=== PATIENT | female | born 1955 | race Hispanic/Latino ===

== ENCOUNTER 2018-12-12 14:13 | Emergency (ER) | payer OTHER ==
[~2018-12-12] VITALS: Ht 165.1 cm; Wt 78.9 kg
--- OUTSIDE RECORDS SUMMARY | 2018-12-12 14:16 | XMS REPORT | Clinical Summary ---
Author Author DIANE RadioShackBenewah Community HospitalPhotop TechnologiesLourdes Counseling Center Organization [facility] RadioShackIdaho Falls Community HospitalLocishLourdes Counseling Center Address Unknown Phone Unavailable Care Team Providers Care Star Route Mail Driver Name Role Phone David Tamez MD PCP Allergies No Known Allergies Medications End Date Status Medication Sig Dispensed Refills Start Date 10/15/2018 Discontinued omega 6-kgl-rkr-fish oil Take 1,000 mg 0 1,200 (144-216) [...] Taken Vital Sign Reading 10/10/2018 12:12 PM PIPE INSULATOR HELPER Blood Pressure 130/78 10/10/2018 12:12 PM PIPE INSULATOR HELPER Pulse 63 10/10/2018 12:12 PM PIPE INSULATOR HELPER Temperature 35.8 C (96.5 F) 10/10/2018 12:12 PM PIPE INSULATOR HELPER Respiratory Rate 18 10/10/2018 12:12 PM PIPE INSULATOR HELPER Oxygen Saturation 99% - Inhaled Oxygen - Concentration 10/10/2018 12:23 PM PIPE INSULATOR HELPER Weight 83.9 kg (185 lb) 10/10/2018 12:23 PM PIPE INSULATOR HELPER Height 165.1 cm (5' 5") 10/10/2018 12:23 PM PIPE INSULATOR HELPER Body Mass Index 30.79 Plan of Treatment Not on file Procedures Comments Procedure Name Priority Date/Time Associated Diagnosis CYTOLOGY AP Routine 09/08/2018 4:00 PM PIPE INSULATOR HELPER US FINE NEEDLE ASPIRATION Routine 09/08/2018 Thyroid nodule THYROID 1:15 [address]ULATOR HELPER [address] SOFT TISSUE NECK WITH Routine 09/08/2018 Neck mass IV CONTRAST 9:04 AM PIPE INSULATOR HELPER POCT-CREATININE Routine 09/08/2018 9:00 AM PIPE INSULATOR HELPER after 12/11/2017 Results * Cytology (09/08/2018 4:00 PM PIPE INSULATOR HELPER) Case Report Medical Cytology [facility] Report [facility] Case: [id number] Authorizing Provider:Nickolas Tom MD Collected: 09/08/2018 1600 Ordering Location: [facility] Radiology Main Received: 09/09/2018 1139 Pathologist: Lois Casper MD Specimen:Thyroid, Right DIAGNOSIS LEFT LOBE THYROID GLAND NODULE [facility] FNA BY CLINICIAN (CYTOSPINS): [facility] - DIAGNOSTIC CATEGORY: BENIGN - HYPERPLASTIC NODULE Signing Pathologist Direct Phone Line: [phone] CPT Code(s) 59449 [facility] CLINICAL DATA (2.2 X 1.1 X 1.6 cm) Left [facility] thyroid gland nodule [facility] SPECIMEN SOURCE LEFT LOBE THYROID GLAND NODULE [facility] FNA [facility] GROSS DESCRIPTION 30 mls in cytorich red; 4 [facility] cytospins [facility] Collected: [id number] Received: [id number] Gross assessment was [facility] performed at [place], Department of [facility] Pathology, [address] [place] [address], Technical component was [facility] performed at [place], Department of [facility] Pathology, [address] [place] [address], Professional component [facility] was performed at [place], Department of [facility] Pathology, [address] [place] [address], Specimen Fine Needle Aspirate - Thyroid, Right Narrative Performed At Performing Organization Address City/State/Zipcode Phone Number [address] [address] [facility] * US Fine Needle Aspiration Thyroid (09/08/2018 1:15 PM PIPE INSULATOR HELPER) Narrative Performed At FINAL REPORT [employer] Ultrasound-guided fine needle aspiration of the thyroid. [...] The sample was sent to cytology in [facility]. Patient disposition: The patient was asymptomatic at [...] MD Report Verified Date/Time:09/08/2018 14:54:06 Reading Location: [address] Ultrasound Reading Room Procedure Note Interface, External Ris In - 09/08/2018 2:56 PM PIPE INSULATOR HELPER FINAL REPORT Ultrasound-guided fine needle aspiration [...] The sample was sent to cytology in [facility]. Patient disposition: The patient was asymptomatic at [...] Report Verified Date/Time: 09/08/2018 14:54:06 Reading Location: [address] Ultrasound Reading Room Performing Organization Address City/State/Zipcode Phone Number [employer] * CT neck soft tissue with IV contrast (09/08/2018 9:04 AM PIPE INSULATOR HELPER) Narrative Performed At FINAL REPORT [employer] CT, SOFT TISSUE NECK, CONTRAST INDICATION:R22.1 TECHNIQUE: [...] MD Report Verified Date/Time:09/08/2018 09:42:06 Reading Location: [address] Neuro Reading Room Procedure Note Interface, External Ris In - 09/08/2018 9:44 AM PIPE INSULATOR HELPER FINAL REPORT CT, SOFT TISSUE NECK, [...] Report Verified Date/Time: 09/08/2018 09:42:06 Reading Location: [facility] B1 C013V Neuro Reading Room Performing Organization Address City/State/Zipcode Phone Number GE RIS * POC-Creatinine (09/08/2018 9:00 AM PIPE INSULATOR HELPER) POC-Creatinine 0.8Comment: TESTED AT [facility] 0.6 - 1.3 mg/dL [address] POC-EGFR 72 mL/min/1.73M2 [facility] Specimen Blood Performing Organization Address City/State/[place] [address] [facility] after 12/11/2017 Insurance Payer Benefit Subscriber ID Type Phone Address Plan / Group [facility] xxxxxxxxxx [employer]PLAC E EXCHANGE
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
--- NOTE | 2018-12-12 15:24 | Diagnostic Imaging Report ---
Exam: Left tibia 2 views and 2 views History: Fracture Comparison: None. Findings: Stable depressed lateral tibial plateau fracture. The remainder of the tibia fibula and femur unremarkable for trauma. Nonaggressive sclerotic lesion within the proximal lateral femoral diaphysis. Impression: Depressed lateral tibial plateau fracture Signed by: Dr. Pako Perez M.D. on 12/12/2018 3:21 PM
--- NOTE | 2018-12-12 15:36 | Diagnostic Imaging Report ---
Exam: Left hip 2 views History: Pain Comparison: None. Findings: No fracture or malalignment. Mild degenerative arthrosis of the hips. Non aggressive sclerotic lesion in the proximal left femoral diaphysis. No abnormal soft tissue calcification or soft tissue defect. Impression: No acute osseous abnormality Signed by: Dr. Pako Perez M.D. on 12/12/2018 3:32 PM
--- NOTE | 2018-12-12 15:59 | NUR ---
knee immobilizer placed by shelli. pt to go home per md after talking with ortho.
--- NOTE | 2018-12-12 16:19 | NUR ---
CRUTCHES WITH TEACHING.
[2018-12-22] MEDS ORDERED: XARELTO10 MG PO (15:52)
[2018-12-22] MEDS ORDERED: B COMPLEX1 EACH PO (16:09)
[2018-12-22] MEDS ORDERED: MAGNESIUM500 MG PEG (16:09)
[2018-12-22] MEDS ORDERED: CALCIUM CARBON500 MG PO (16:09)
[2018-12-22] MEDS ORDERED: MULTI-VITAMIN1 EACH PO (16:09)
== END 2018-12-12 16:36 | disposition home or self-care (01) ==
LOC: FSED 14:13
DX: G89.11 Acute pain due to trauma (principal); S82.252A Displaced comminuted fracture of shaft of left tibia, initial encounter for closed fracture; S80.02XA Contusion of left knee, initial encounter; S70.02XA Contusion of left hip, initial encounter; V09.20XA Pedestrian injured in traffic accident involving unspecified motor vehicles, initial encounter; Y92.488 Other paved roadways as the place of occurrence of the external cause
CPT/HCPCS: 99284

== ENCOUNTER → 2018-12-12 | Emergency (ER) | payer OTHER ==
[~2018-12-12] VITALS: Ht 165.1 cm; Wt 78.9 kg
[~2018-12-12] MED LIST: B COMPLEX1 EACH PO; CALCIUM CARBON500 MG PO; HYDROMORPHONE 2MG/ML 2 MG/ML ML IM ONE; MAGNESIUM500 MG PEG; MULTI-VITAMIN1 EACH PO; XARELTO10 MG PO
--- OUTSIDE RECORDS SUMMARY | 2018-12-12 11:37 | XMS REPORT ---
Author Author [facility] Address Unknown Phone Unavailable Care Team Providers Care Applications Tester Name Role Phone NADIA TOM Unavailable Unavailable Problems This patient has no known problems. Allergies, Adverse Reactions, Alerts This patient has no known allergies or adverse reactions. Medications This patient has no known medications. Results Test Description Test Time Test Comments Text Results Atomic Results Result Comments CYTOLOGY 2018-09-09 17:18:00 Medical Cytology Report Case: [id number] Authorizing Provider: Nickolas Tom MD Collected: 09/08/2018 1600 Ordering Location: [facility] Radiology Main Received: 09/09/2018 1139 Pathologist: Lois Casper MD Specimen: Thyroid, Right LEFT LOBE THYROID GLAND NODULE FNA BY CLINICIAN (CYTOSPINS): - DIAGNOSTIC CATEGORY: BENIGN - HYPERPLASTIC NODULE Signing Pathologist Direct Phone Line: [phone] signed by Lois Casper MD on 09/09/2018 at 5:18 [id number](2.2 X 1.1 X 1.6 cm) Left thyroid gland nodule LEFT LOBE THYROID GLAND NODULE FNA30 mls in cytorich red; 4 cytospinsCollected: [id number]: [id number] [facility], Department of Pathology, [address] [place] [address], [facility], [facility] of Pathology, [address] [place] [address], [facility], Department of Pathology, [address] [place] [address], [place], FINE NEEDLE ASPIRATION (FNA), THYROID 2018-09-08 14:54:00 Reason for Exam:->E04.1 FINAL REPORT Ultrasound-guided fine needle aspiration of the thyroid. Clinical History: E04.1. Informed consent was obtained from the patient and risks of the procedure were explained including bleeding, infection and visceral injury. Sedation: 1% Xylocaine. Technique: Using sterile technique, real-time ultrasound guidance and three 25 gauge needles, a 3 pass fine needle aspiration was performed of the 2.2 x 1.1 x 1.6 cm isoechoic nodule in the mid to lower pole of the right lobe. The sample was sent to cytology in [facility]. Patient disposition: The patient was asymptomatic at the termination of the study. No complications were encountered. Estimated Blood Loss: None. Impression: Successful fine needle aspiration of a 2.2 x 1.1 x 1.6 cm nodule in the right lobe of the thyroid gland. Also noted is a 1.7 x 1.0 x 1.3 cm oval hypoechoic nodule in the isthmus. Fine needle aspiration of this nodule was not requested but it would be amenable to fine-needle aspiration as clinically in dicated. The office was called to communicate this finding but the doctor could not be reached as he was in surgery. The results and recommendations were discussed with the patient. Signed: Yony Laureano MDReport Verified Date/Time: 09/08/2018 14:54:06 Reading Location: [address] Ultrasound Reading Room , SOFT TISSUE NECK, CONTRAST 2018-09-08 09:42:[address], SOFT TISSUE NECK, CONTRAST INDICATION: R22.1 TECHNIQUE: Postcontrast CT images of the cervical soft tissues. Multiplanar, orthogonal reformatted images were generated. DOSE REDUCTION: Dose modulation, iterative reconstruction, and/or weight-based adjustment of the mA/kV was utilized to reduce the radiation dose to as low as reasonably achievable. COMPARISON: None FINDINGS: A subcutaneous cystic structure with thin rim enhancement is present anterior to the hyoid bone, position the left of midline and measuring approximately 1.5 x 2.2 cm. There is no discernible communication beyond the superficial layer of the cervical fashion. No cystic or fistula changes are identified extending toward away from this lesion. The oral cavity and base of tongue are unremarkable. The hyoid bone is intact. The nasopharynx, oral cavity and parapharyngeal spaces are clear. Retropharyngeal space is unremarkable. Appearance of the larynx, hypopharynx and supraglottic glottis are unremarkable. The thyroid gland demonstrates normal low morphology. A nodular lesion in the region of the isthmus measures 1.2 x 0.9 cm. Vascular structures are unremarkable. There is no adenopathy. No acute orbital abnormality. Mucosal thickening and partial fluid opacification bilaterally maxillary chambers and multiple anterior air cells. Sphenoid chambers and mastoid air cells are clear. Unremarkable skull base. 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 No secondary sign of infection. Low-attenuation lesion in the thyroid isthmus measures up to 1.3 cm in greatest dimension. This is nonspecific, and given the aforementioned cystic lesion, sonographic follow-up is recommended. Signed: JR Trinh Robert MDReport Verified Date/Time: 09/08/2018 09:42:06 Reading Location: [address] Neuro Reading Room -CREATININE 2018-09-08 09:16:00 POC-CREATININE (SIS) (test jyos=[id number]) 0.8 mg/dL 0.6-1.[address] [address] POC-EGFR (SIS) (test mbwq=8895) 72 mL/min/1.73M2
--- OUTSIDE RECORDS SUMMARY | 2018-12-12 11:37 | XMS REPORT | Clinical Summary ---
Author Author DIANE AkvoBenewah Community HospitalVirident SystemsKindred Healthcare Organization [facility] AkvoSt. Luke'S Nampa Medical CenterTobosu.comKindred Healthcare Address Unknown Phone Unavailable Care Team Providers Care Anthropology Faculty Member Name Role Phone David Tamez MD PCP Allergies No Known Allergies Medications End Date Status Medication Sig Dispensed Refills Start Date 10/15/2018 Discontinued omega 1-ptr-hww-fish oil Take 1,000 mg 0 1,200 (144-216) mg Cap by mouth daily. 10/15/2018 Discontinued glucosamine-methylsulfony Take 1 tablet 0 lmeth (GLUCOSAMINE MSM) by mouth 1,500-500 mg/30 mL Liqd daily. 10/15/2018 Discontinued coenzyme Q10 (CO Q-10) Take 100 mg 0 100 mg capsule by mouth daily. 10/15/2018 Discontinued cholecalciferol, vitamin Take 5,000 0 D3, (VITAMIN D3) 5,000 Units by unit Tab mouth daily. 10/15/2018 Discontinued flaxseed oil Oil Take 200 mg 0 by mouth daily. 10/15/2018 Discontinued acetylcysteine, bulk, by 0 Powd Miscellaneous route. 10/15/2018 Discontinued multivitamin per tablet Take 1 tablet 0 by mouth daily. 10/15/2018 Discontinued CHROMIUM ORAL Take by 0 mouth. 10/15/2018 Discontinued b complex vitamins tablet Take 1 tablet 0 by mouth daily. 10/15/2018 Discontinued CALCIUM-MAGNESIUM ORAL Take by 0 mouth. 10/15/2018 Discontinued vitamin E 1000 UNIT Take 2,000 0 capsule Units by mouth daily. 10/15/2018 Discontinued biotin 10,000 mcg Cap Take by 0 mouth. 10/15/2018 Discontinued potassium 99 mg Tab Take by 0 mouth. 10/15/2018 Discontinued alpha lipoic acid 200 mg Take by 0 Cap mouth. Active Problems Not on file Encounters Care Team Description Date Type Specialty Nickolas Tom MD 10/10/2018 Hospital Pre-Admission Testing Encounter Nickolas Tom MD Thyroid nodule 09/08/2018 Hospital Radiology Encounter Nickolas Tom MD Neck mass 09/08/2018 Hospital Radiology Encounter Nickolas Tom MD Neck mass (Primary Dx); Thyroid nodule 09/04/2018 Outside Orders Central Scheduling after 12/11/2017 Social History Date Tobacco Use Types Packs/Day Years Used Never Smoker Smokeless Tobacco: Never Used Alcohol Use Drinks/Week oz/Week Comments No Alcohol Habits Answer Date Recorded How often do you have a drink containing alcohol? Never 10/10/2018 How many drinks containing alcohol do you have on Not asked a typical day when you are drinking? How often do you have six or more drinks on one Not asked occasion? Sex Assigned at Date Recorded Not on file Industry Job Start Date Occupation Not on file Not on file Not on file Travel End Travel History Travel Start No recent travel history available. Last Filed Vital Signs Time Taken Vital Sign Reading 10/10/2018 12:12 PM GENERATION MECHANIC HELPER Blood Pressure 130/78 10/10/2018 12:12 PM GENERATION MECHANIC HELPER Pulse 63 10/10/2018 12:12 PM GENERATION MECHANIC HELPER Temperature 35.8 C (96.5 F) 10/10/2018 12:12 PM GENERATION MECHANIC HELPER Respiratory Rate 18 10/10/2018 12:12 PM GENERATION MECHANIC HELPER Oxygen Saturation 99% - Inhaled Oxygen - Concentration 10/10/2018 12:23 PM GENERATION MECHANIC HELPER Weight 83.9 kg (185 lb) 10/10/2018 12:23 PM GENERATION MECHANIC HELPER Height 165.1 cm (5' 5") 10/10/2018 12:23 PM GENERATION MECHANIC HELPER Body Mass Index 30.79 Plan of Treatment Not on file Procedures Comments Procedure Name Priority Date/Time Associated Diagnosis CYTOLOGY AP Routine 09/08/2018 4:00 PM GENERATION MECHANIC HELPER US FINE NEEDLE ASPIRATION Routine 09/08/2018 Thyroid nodule THYROID 1:15 PM GENERATION [employer]CH[employer]IC [employer] CT SOFT TISSUE NECK WITH Routine 09/08/2018 Neck mass IV CONTRAST 9:04 AM GENERATION MECHANIC HELPER POCT-CREATININE Routine 09/08/2018 9:00 AM GENERATION MECHANIC HELPER after 12/11/2017 Results * Cytology (09/08/2018 4:00 PM GENERATION MECHANIC HELPER) Case Report Medical Cytology [facility] Report [facility] Case: [id number] Authorizing Provider:Nickolas Tom MD Collected: 09/08/2018 1600 Ordering Location: [facility] Radiology Main Received: 09/09/2018 1139 Pathologist: Lois Casper MD Specimen:Thyroid, Right DIAGNOSIS LEFT LOBE THYROID GLAND NODULE [facility] FNA BY CLINICIAN (CYTOSPINS): [facility] - DIAGNOSTIC CATEGORY: BENIGN - HYPERPLASTIC NODULE Signing Pathologist Direct Phone Line: [phone] CPT Code(s) 15546 [facility] CLINICAL DATA (2.2 X 1.1 X 1.6 cm) Left [facility] thyroid gland nodule [facility] SPECIMEN SOURCE LEFT LOBE THYROID GLAND NODULE [facility] FNA [facility] GROSS DESCRIPTION 30 mls in cytorich red; 4 [facility] cytospins [facility] Collected: [id number] Received: [id number] Gross assessment was [facility] performed at [place], Department of [facility] Pathology, [address] [place] [address], Technical component was [facility] performed at [place], Department of [facility] Pathology, [address] [place] [address], Professional component [facility] was performed at [place], Department of [facility] Pathology, [address] [place] [address], Specimen Fine Needle Aspirate - Thyroid, Right Narrative Performed At Performing Organization Address City/State/Zipcode Phone Number [address] [address] [facility] * US Fine Needle Aspiration Thyroid (09/08/2018 1:15 PM GENERATION MECHANIC HELPER) Narrative Performed At FINAL REPORT [place] Ultrasound-guided fine needle aspiration of the thyroid. [...] The sample was sent to cytology in [facility]. Patient disposition: The patient was asymptomatic [...] be amenable to fine-needle aspiration as clinically indicated. The office was called to communicate this finding but the doctor could not be reached as he was in surgery. The results and recommendations were discussed with the patient. Signed: Yony Laureano MD Report Verified Date/Time:09/08/2018 14:54:06 Reading Location: [address] Ultrasound Reading Room Procedure Note Interface, External Ris In - 09/08/2018 2:56 PM GENERATION MECHANIC HELPER FINAL REPORT Ultrasound-guided fine needle aspiration of [...] The sample was sent to cytology in [facility]. Patient disposition: The patient was asymptomatic [...] be amenable to fine-needle aspiration as clinically indicated. The office was called to communicate this finding but the doctor could not be reached as he was in surgery. The results and recommendations were discussed with the patient. Signed: Yony Laureano MD Report Verified Date/Time: 09/08/2018 14:54:06 Reading Location: [address] Ultrasound Reading Room Performing Organization Address City/State/Zipcode Phone Number [place] * CT neck soft tissue with IV contrast (09/08/2018 9:04 AM GENERATION MECHANIC HELPER) Narrative Performed At FINAL REPORT [place] CT, SOFT TISSUE NECK, CONTRAST INDICATION:R22.1 TECHNIQUE: Postcontrast CT images of the cervical [...] follow-up is recommended. Signed: JR Trinh Robert MD Report Verified Date/Time:09/08/2018 09:42:06 Reading Location: [address] Neuro Reading Room Procedure Note Interface, External Ris In - 09/08/2018 9:44 AM GENERATION MECHANIC HELPER FINAL REPORT CT, SOFT TISSUE NECK, CONTRAST [...] follow-up is recommended. Signed: JR Trinh Robert MD Report Verified Date/Time: 09/08/2018 09:42:06 Reading Location: [facility] B1 C013V Neuro Reading Room Performing Organization Address City/State/Zipcode Phone Number GE RIS * POC-Creatinine (09/08/2018 9:00 AM GENERATION MECHANIC HELPER) POC-Creatinine 0.8Comment: TESTED AT [facility] 0.6 - 1.3 mg/dL [address] POC-EGFR 72 mL/min/1.73M2 [facility] Specimen Blood Performing Organization Address City/State/[place] [address] [facility] after 12/11/2017 Insurance Payer Benefit Subscriber ID Type Phone Address Plan / [facility] x[facility]x InvodoPLAC E EXCHANGE
--- NOTE | 2018-12-12 13:55 | NUR ---
PT CALLED BACK FOR ASSESSMENT BY ANNELIESE DOS SANTOS, NO ANSWER.
--- NOTE | 2018-12-12 14:35 | NUR ---
CALLED PT AGAIN FOR ASSESSMENT NO REPONSE.
== END | disposition left against medical advice (07) ==
LOC: ER 11:35
DX: M25.552 Pain in left hip (principal)

== ENCOUNTER → 2018-12-17 | Outpatient (CLI) | payer OTHER ==
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
== END ==
LOC: CT 11:00
PROVIDERS: ATTEND Specialist
DX: S82.122A Displaced fracture of lateral condyle of left tibia, initial encounter for closed fracture (principal)

== ENCOUNTER 2018-12-24 07:47 | Observation (INO) | payer OTHER ==
[2018-12-22 16:55] LABS: BASOPHILS # (AUTO) 0.1 (0.0-0.1); BASOPHILS % 1.3 % (0.0-1.0); EOSINOPHILS # (AUTO) 0.1 (0.0-0.4); EOSINOPHILS % 1.1 % (0.0-6.0); HEMATOCRIT 41.6 % (34.2-44.1); HEMOGLOBIN 14.1 g/dL (12.0-16.0); LYMPHOCYTES # (AUTO) 1.7 (1.0-3.2); MEAN CORPUSCULAR HGB CONC 33.9 g/dL (31-35); MEAN CORPUSCULAR VOLUME 88.5 fL (81-99); MONOCYTES # (AUTO) 0.5 (0.2-0.8); MONOCYTES % 7.1 % (4.4-11.3); NEUTROPHILS # (AUTO) 4.7 (2.1-6.9); NEUTROPHILS % 66.2 % (38.7-80.0); PLATELET COUNT 305 x10e3/uL (140-360); RED CELL DISTRIBUTION WIDTH 13.6 % (11.7-14.4)
[2018-12-22 17:07] LABS: ANION GAP 14.8 mmol/L (8-16); BLOOD UREA NITROGEN 14 mg/dL (7-26); BUN/CREATININE RATIO 20 (6-25); CALCIUM 9.6 mg/dL (8.4-10.2); CARBON DIOXIDE 25 mmol/L (22-29); CHLORIDE 100 mmol/L (98-107); CREATININE, SERUM 0.69 mg/dL (0.57-1.11); EST GLOMERULAR FILTRATION RATE > 60 ML/MIN (60-); GLUCOSE 87 mg/dL (74-118); POTASSIUM 3.8 mmol/L (3.5-5.1); SODIUM 136 mmol/L (136-145)
[~2018-12-24] VITALS: Ht 165.1 cm; Wt 79.8 kg
[~2018-12-24 07:47] MED LIST changes: -HYDROMORPHONE 2MG/ML 2 MG/ML ML IM ONE
--- OUTSIDE RECORDS SUMMARY | 2018-12-24 07:50 | XMS REPORT | Clinical Summary ---
Author Author DIANE [facility] HealthRemote AssistantL[facility] Center Organization [facility] Address Unknown Phone Unavailable Care Team Providers Care Dining Service Inspector Name Role Phone David Tamez MD PCP Allergies No Known Allergies Medications End Date Status Medication Sig Dispensed Refills Start Date 10/15/2018 Discontinued omega 5-eby-rqx-fish oil Take 1,000 mg 0 1,200 (144-216) [...] nodule 09/04/2018 Outside Orders Central Scheduling after 12/23/2017 Social History Date Tobacco Use Types Packs/Day [...] Taken Vital Sign Reading 10/10/2018 12:12 PM WORKCELL OPERATOR Blood Pressure 130/78 10/10/2018 12:12 PM WORKCELL OPERATOR Pulse 63 10/10/2018 12:12 PM WORKCELL OPERATOR Temperature 35.8 C (96.5 F) 10/10/2018 12:12 PM WORKCELL OPERATOR Respiratory Rate 18 10/10/2018 12:12 PM WORKCELL OPERATOR Oxygen Saturation 99% - Inhaled Oxygen - Concentration 10/10/2018 12:23 PM WORKCELL OPERATOR Weight 83.9 kg (185 lb) 10/10/2018 12:23 PM WORKCELL OPERATOR Height 165.1 cm (5' 5") 10/10/2018 12:23 PM WORKCELL OPERATOR Body Mass Index 30.79 Plan of Treatment Not on file Procedures Comments Procedure Name Priority Date/Time Associated Diagnosis CYTOLOGY AP Routine 09/08/2018 4:00 PM WORKCELL OPERATOR US FINE NEEDLE ASPIRATION Routine 09/08/2018 Thyroid nodule THYROID 1:[address] SOFT TISSUE NECK WITH Routine 09/08/2018 Neck mass IV CONTRAST 9:04 AM WORKCELL OPERATOR POCT-CREATININE Routine 09/08/2018 9:00 AM WORKCELL OPERATOR after 12/23/2017 Results * Cytology (09/08/2018 4:00 PM WORKCELL OPERATOR) Case Report Medical Cytology [facility] Report [facility] Case: [id number] Authorizing Provider:Nickolas Tom MD Collected: 09/08/2018 1600 Ordering Location: [facility] Radiology Main Received: 09/09/2018 1139 Pathologist: Lois Casper MD Specimen:Thyroid, Right DIAGNOSIS LEFT LOBE THYROID GLAND NODULE [facility] FNA BY CLINICIAN (CYTOSPINS): [facility] - DIAGNOSTIC CATEGORY: BENIGN - HYPERPLASTIC NODULE Signing Pathologist Direct Phone Line: [phone] CPT Code(s) 17407 [facility] CLINICAL DATA (2.2 X 1.1 X 1.6 cm) Left [facility] thyroid gland nodule [facility] SPECIMEN SOURCE LEFT LOBE THYROID GLAND NODULE [facility] FNA [facility] GROSS DESCRIPTION 30 mls in cytorich red; 4 [facility] cytospins [facility] Collected: [id number] Received: [id number] Gross assessment was [facility] performed at [place], Department of [facility] Pathology, [address] [place] [address], Technical component was [facility] performed at [place], Department of [facility] Pathology, [address] [place] [address], Professional component [facility] was performed at [place], Department of [facility] Pathology, [address] [place] [address], Specimen Fine Needle Aspirate - Thyroid, Right Narrative Performed At Performing Organization Address City/State/Zipcode Phone Number [address] [address] [facility] * US Fine Needle Aspiration Thyroid (09/08/2018 1:15 PM WORKCELL OPERATOR) Narrative Performed At FINAL REPORT [facility] Ultrasound-guided fine needle aspiration of the thyroid. [...] The sample was sent to cytology in [facility]. Patient disposition: The patient was asymptomatic at [...] MD Report Verified Date/Time:09/08/2018 14:54:06 Reading Location: [address] Ultrasound Reading Room Procedure Note Interface, External Ris In - 09/08/2018 2:56 PM WORKCELL OPERATOR FINAL REPORT Ultrasound-guided fine needle aspiration of [...] The sample was sent to cytology in [facility]. Patient disposition: The patient was asymptomatic at [...] Report Verified Date/Time: 09/08/2018 14:54:06 Reading Location: [address] Ultrasound Reading Room Performing Organization Address City/State/Zipcode Phone Number [facility] * CT neck soft tissue with IV contrast (09/08/2018 9:04 AM WORKCELL OPERATOR) Narrative Performed At FINAL REPORT [facility] CT, SOFT TISSUE NECK, CONTRAST INDICATION:R22.1 TECHNIQUE: [...] MD Report Verified Date/Time:09/08/2018 09:42:06 Reading Location: [address] Neuro Reading Room Procedure Note Interface, External Ris In - 09/08/2018 9:44 AM WORKCELL OPERATOR FINAL REPORT CT, SOFT TISSUE NECK, CONTRAST [...] Report Verified Date/Time: 09/08/2018 09:42:06 Reading Location: [facility] B1 C013V Neuro Reading Room Performing Organization Address City/State/Zipcode Phone Number [facility] * POC-Creatinine (09/08/2018 9:00 AM WORKCELL OPERATOR) POC-Creatinine 0.8Comment: TESTED AT [facility] 0.6 - 1.3 mg/dL [address] POC-EGFR 72 mL/min/1.73M2 [facility] Specimen Blood Performing Organization Address City/State/[place] [address] [facility] after 12/23/2017 Insurance Payer Benefit Subscriber ID Type Phone Address Plan / Group [facility] x[facility]x [employer] Transport[employer]AC E EXCHANGE
[2018-12-24] MEDS ORDERED: CEFAZOLIN SOD 2 GM/D5W 50ML 50 ML IV ONE (08:35)
[2018-12-24] MEDS ORDERED: BUPIVACAINE HCL 0.5% INJ 30 ML VIAL INJ ONE (09:48)
[2018-12-24] MEDS ORDERED: ACETAMINOPHEN 1000 MG/100 ML 100 ML IV ONE (10:42)
[2018-12-24] MEDS ORDERED: DIPHENHYDRAMINE HCL INJ 50 MG/ML VIAL IM/IV PRN (12:00)
[2018-12-24] MEDS ORDERED: ONDANSETRON HCL INJ 2MG/ML 2ML 2 MG/ML VIAL IV PRN (12:00)
[2018-12-24] MEDS ORDERED: NALOXONE HCL INJ 0.4 MG/ML AMP IV PRN (12:00)
[2018-12-24] MEDS ORDERED: HYDROMORPHONE 0.2MG/ML-SOD CHL 30ML PCA SYRINGE IV PRN (12:00)
[2018-12-24] MEDS ORDERED: MEPERIDINE HCL INJ 25 MG/ML VIAL ONE (12:15)
[2018-12-24] MEDS ORDERED: HYDROMORPHONE 2MG/ML 2 MG/ML ML ONE (12:54)
--- NOTE | 2018-12-24 13:22 | Diagnostic Imaging Report ---
Left knee radiographs-2 views History: Post-op. Comparison: CT left knee 12/17/18. Findings: Status post interval ORIF of comminuted left lateral tibial plateau fracture with plate and screw construct. Alignment is improved. Hardware appears intact. Fracture lines are visible. No additional fractures visualized. There is overlying soft tissue edema and gas as well as skin emma, consistent with recent postoperative state. IMPRESSION: Recent postsurgical changes status post interval ORIF of comminuted left lateral tibial plateau fracture. Improved alignment with intact hardware. Signed by: Dr. Nicolas Sandy MD on 12/24/2018 1:19 PM
--- NOTE | 2018-12-24 13:36 | NUR ---
Patient admitted to unit from PACU. Patient is AAOx3. Patient is post op left tibial plateau. Dressing clean and dry. Pedal pulses palpable. No edema noted. Right hand IV in place. IV fluids and UNCRATER pump infusing. Patient is NWB to left leg. Family at bedside. Patient has her wheelchair in the room. Addendum: 12/25/18 at 0718 by Jessie Lal RN Small red area noted to sacral area
[2018-12-24] MEDS: CEFAZOLIN SOD 1 GM/NS 50ML 50 ML IV SCH ×2 (14:57→21:52)
[2018-12-24] MEDS: SODIUM CHLORIDE 0.9% 1000ML 1,000 ML IV SCH ×2 (14:57→21:50)
[2018-12-24 15:35] VITALS: BP 157/71
[2018-12-24 16:29] VITALS: BP 157/71
[2018-12-24] MEDS ORDERED: PROPOFOL IV EMULSION 10 MG/ML 20 ML VIAL ONE (17:18)
[2018-12-24] MEDS ORDERED: DEXAMETHASONE SOD PHOS INJ 4 MG/ML VIAL ONE (17:18)
[2018-12-24] MEDS ORDERED: KETOROLAC TROMETHAMINE 30 MG/ML VIAL ONE (17:18)
[2018-12-24] MEDS ORDERED: SEVOFLURANE INHAL SOLN 250 ML PEN BTL ONE (17:18)
[2018-12-24] MEDS ORDERED: ONDANSETRON HCL INJ 2MG/ML 2ML 2 MG/ML VIAL ONE (17:18)
[2018-12-24] MEDS ORDERED: LIDOCAINE HCL 2% LOCAL INJ 5 ML SDV VIAL INJ ONE (17:18)
[2018-12-24] MEDS: ACETAMINOPHEN 1000 MG/100 ML IV SCH (17:23)
[2018-12-24] MEDS ORDERED: FENTANYL CITRATE/PF 100MCG/2 ML INJ ONE (18:48)
[2018-12-24] MEDS ORDERED: MIDAZOLAM HCL 2 MG/2 ML VIAL ONE (18:48)
[2018-12-24 20:00] VITALS: BP 131/67
[2018-12-24 21:00] VITALS: BP 131/67
[2018-12-25] VITALS: BP 149/70
[2018-12-25] MEDS: ACETAMINOPHEN 1000 MG/100 ML IV SCH ×2 (01:00→05:40)
[2018-12-25 04:00] VITALS: BP 139/79
[2018-12-25] MEDS: CEFAZOLIN SOD 1 GM/NS 50ML 50 ML IV SCH (05:54)
[2018-12-25 06:07] LABS: HEMATOCRIT 36.7 % (34.2-44.1); HEMOGLOBIN 12.5 g/dL (12.0-16.0)
--- NOTE | 2018-12-25 07:23 | NUR ---
Rcvd patient in report this am. Patient is asleep in bed. No s/s of distress noted. WHARF WORKER checked via two nurses
[2018-12-25 07:49] VITALS: BP_SYST 112; BP_SYST 130; BP_DIAS 62; BP_DIAS 67
[2018-12-25] MEDS: SODIUM CHLORIDE 0.9% 1000ML 1,000 ML IV SCH (07:50)
[2018-12-25] MEDS ORDERED: RIVAROXABAN 10 MG TABLET PO SCH ×2 (09:00→17:00)
[2018-12-25] MEDS ORDERED: KETOROLAC TROMETHAMINE 30 MG/ML VIAL IV PRN (09:15)
[2018-12-25] MEDS ORDERED: TRAMADOL/APAP 37.5MG-325MG TAB PO PRN (09:15)
--- NOTE | 2018-12-25 09:30 | NUR ---
Patient refused to have the xarelto this am. Patient informed that she takes the medication in the evening and will take when she goes home this evening if she does.
[2018-12-25] MEDS ORDERED: KETOROLAC TROMETHAMINE 30 MG/ML VIAL ONE (10:12)
[2018-12-25 10:31] VITALS: BP 130/62
--- NOTE | 2018-12-25 11:10 | NUR ---
Patient is AAOx3. Patient is post op left tibial plateau fracture. Dressing clean and dry. Immobilizer in place. Pedal pulses palpable. PRN pain meds given. Lung hager clear to auscultation. Bowel sounds present x4. No edema noted. Patient ambulates with a walker and assistance
[2018-12-25 11:34] VITALS: BP 133/70
[2018-12-25] MEDS ORDERED: ULTRACET TABLE1 EACH PO (13:27)
--- NOTE | 2018-12-25 14:00 | NUR ---
IV removed from right hand. Pressure dressing applied
--- NOTE | 2018-12-25 14:14 | NUR ---
Reviewed all discharge paperwork with the patient. Reviewed follow up appts and RX's given.
--- NOTE | 2018-12-26 01:20 | Operative Report ---
DATE OF PROCEDURE: 12/24/2018 SURGEON: Lemuel Lorenzo MD PREOPERATIVE DIAGNOSIS: Displaced left tibial plateau fracture. POSTOPERATIVE DIAGNOSIS: Displaced left tibial plateau fracture. OPERATION/PROCEDURES PERFORMED: 1. The patient underwent open reduction and internal fixation of the displaced left tibial plateau fracture. 2. Allograft bone grafting of the displaced left tibial plateau fracture. JEWEL SAWYER: INDIRA Evans ANESTHESIA: General endotracheal intubation anesthesia. IV FLUIDS: Per the Anesthesia record. BRIEF DISCUSSION AND OPERATIVE PROCEDURE: Ms. Hart was taken to the operating room, placed in supine position on the operating table. Following the induction of general anesthesia as well as endotracheal intubation, the patient's left lower extremity was examined under anesthesia. She was found to have mild bruising and ecchymosis of bilateral knee joint. There was no significant swelling distally in the lower extremity. Fluoroscopic evaluation of the knee joint demonstrated a split depression-type lateral tibial plateau fracture. The patient's lower extremity was prepped and draped in standard surgical fashion. The case was begun by creating incision along the anterior access of the leg centered over the knee joint. This incision was carried through the skin all the way. Blunt dissection was used to deepen the incision and elevate full thickness skin flaps over the lateral aspect of the proximal tibia. A hockey stick-shaped incision was then created with the proximal tibia laterally. The muscles were elevated from the tibia directly. This exposed a split depression-type tibial plateau fracture. The fracture site was opened and an elevator was used to elevate the articular surface from its depressed position. This wound was then copiously irrigated. Bone graft was then placed beneath the fractured segment of the tibial plateau in the fracture defect. The outer cortical wall was reduced and fluoroscopic evaluation of the knee joint demonstrated near-anatomic confucianist of the lateral tibial plateau in its entirety. A plate was chosen from the [employer] set. This plate was then positioned over the lateral tibial plateau and shaft. It was fixed to the leg with combinations of compression and cortical locking screws. This resulted in rigid stabilization and compression of the patient's fracture site. Again, fluoroscopic evaluation of the knee demonstrated near anatomic re-alignment of the lateral tibial plateau. The wound was again irrigated. The soft tissues were closed in a multilayer fashion. Sterile dressings were applied as well as the knee immobilizer. The patient was then awakened and taken to Postanesthesia Care Unit in stable condition. Emily Graham acted as the janitorial assistant for this case and was necessary for both prepping and draping the patient as well as the retraction of soft tissues and the closure of the wound that allowed this case to be successful. MD PRICILLA Alford/MOID /[id number]
== END 2018-12-25 14:36 | disposition home or self-care (01) ==
LOC: OR 07:47 → PACU V 11:53 → MED/SURG 13:39
PROVIDERS: ADMIT Specialist; ATTEND Specialist
DX: S82.142A Displaced bicondylar fracture of left tibia, initial encounter for closed fracture (principal)
CPT/HCPCS: 36415; 80048; 82948; 85014; 85018; 85025; 93005; 97139; C1713; C1762; G0378; J0690; J1100; J1885; J2001; J2175; J2250; J2405; J7030

== ENCOUNTER 2019-03-15 16:04 | Emergency (ER) | payer OTHER ==
[~2019-03-15] VITALS: Ht 165.1 cm; Wt 79.8 kg
[~2019-03-15 16:04] MED LIST changes: +ULTRACET TABLE1 EACH PO
--- OUTSIDE RECORDS SUMMARY | 2019-03-15 16:08 | XMS REPORT | Clinical Summary ---
Author Author DIANE [facility]Metro[facility] Organization [facility]Sh[facility] CenterUC[facility] Address Unknown Phone Unavailable Care Team Providers Care Solderer Dipper Name Role Phone David Tamez MD PCP Allergies No Known Allergies Medications End Date Status Medication Sig Dispensed Refills Start Date 10/15/2018 Discontinued omega 5-mji-tqm-fish oil Take 1,000 mg 0 1,200 (144-216) [...] nodule 09/04/2018 Outside Orders Central Scheduling after 03/14/2018 Social History Date Tobacco Use Types Packs/Day [...] Taken Vital Sign Reading 10/10/2018 12:12 PM WAITER/WAITRESS CABIN CLASS Blood Pressure 130/78 10/10/2018 12:12 PM WAITER/WAITRESS CABIN CLASS Pulse 63 10/10/2018 12:12 PM WAITER/WAITRESS CABIN CLASS Temperature 35.8 C (96.5 F) 10/10/2018 12:12 PM WAITER/WAITRESS CABIN CLASS Respiratory Rate 18 10/10/2018 12:12 PM WAITER/WAITRESS CABIN CLASS Oxygen Saturation 99% - Inhaled Oxygen - Concentration 10/10/2018 12:23 PM WAITER/WAITRESS CABIN CLASS Weight 83.9 kg (185 lb) 10/10/2018 12:23 PM WAITER/WAITRESS CABIN CLASS Height 165.1 cm (5' 5") 10/10/2018 12:23 PM WAITER/WAITRESS CABIN CLASS Body Mass Index 30.79 Plan of Treatment Not on file Procedures Comments Procedure Name Priority Date/Time Associated Diagnosis CYTOLOGY AP Routine 09/08/2018 4:00 PM WAITER/WAITRESS CABIN CLASS US FINE NEEDLE ASPIRATION Routine 09/08/2018 Thyroid nodule THYROID 1:15 PM WAITER/WAITRESS CABIN CLASS CT SOFT TISSUE NECK WITH Routine 09/08/2018 Neck mass IV CONTRAST 9:04 AM WAITER/WAITRESS CABIN CLASS POCT-CREATININE Routine 09/08/2018 9:00 AM WAITER/WAITRESS CABIN CLASS after 03/14/2018 Results * Cytology (09/08/2018 4:00 PM WAITER/WAITRESS CABIN CLASS) Case Report Medical Cytology [facility] Report [facility] Case: [id number] Authorizing Provider:Nickolas Tom MD Collected: 09/08/2018 1600 Ordering Location: [facility] Radiology Main Received: 09/09/2018 1139 Pathologist: Lois Casper MD Specimen:Thyroid, Right DIAGNOSIS LEFT LOBE THYROID GLAND NODULE [facility] FNA BY CLINICIAN (CYTOSPINS): [facility] - DIAGNOSTIC CATEGORY: BENIGN - HYPERPLASTIC NODULE Signing Pathologist Direct Phone Line: [phone] CPT Code(s) 57257 [facility] CLINICAL DATA (2.2 X 1.1 X 1.6 cm) Left [facility] thyroid gland nodule [facility] SPECIMEN SOURCE LEFT LOBE THYROID GLAND NODULE [facility] FNA [facility] GROSS DESCRIPTION 30 mls in cytorich red; 4 [facility] cytospins [facility] Collected: [id number] Received: [id number] Gross assessment was [facility] performed at [place], Department of [facility] Pathology, [address] [place] [address], Technical component was [facility] performed at [place], Department of [facility] Pathology, [address] [place] [address], Professional component [facility] was performed at [place], Department of [facility] Pathology, [address] [place] [address], Specimen Fine Needle Aspirate - Thyroid, Right Narrative Performed At Performing Organization Address City/State/Zipcode Phone Number [address] [address] [facility] * US Fine Needle Aspiration Thyroid (09/08/2018 1:15 PM WAITER/WAITRESS CABIN CLASS) Specimen Narrative Performed At FINAL REPORT [facility] Ultrasound-guided fine needle aspiration of the thyroid. [...] The sample was sent to cytology in [facility]. Patient disposition: The patient was asymptomatic [...] MD Report Verified Date/Time:09/08/2018 14:54:06 Reading Location: [address] Ultrasound Reading Room Procedure Note Interface, External Ris In - 09/08/2018 2:56 PM WAITER/WAITRESS CABIN CLASS FINAL REPORT Ultrasound-guided fine needle aspiration of [...] The sample was sent to cytology in [facility]. Patient disposition: The patient was asymptomatic [...] Report Verified Date/Time: 09/08/2018 14:54:06 Reading Location: [address] Ultrasound Reading Room Performing Organization Address City/State/Zipcode Phone Number [facility] * CT neck soft tissue with IV contrast (09/08/2018 9:04 AM WAITER/WAITRESS CABIN CLASS) Specimen Narrative Performed At FINAL REPORT [facility] CT, SOFT TISSUE NECK, CONTRAST INDICATION:R22.1 TECHNIQUE: [...] MD Report Verified Date/Time:09/08/2018 09:42:06 Reading Location: [address] Neuro Reading Room Procedure Note Interface, External Ris In - 09/08/2018 9:44 AM WAITER/WAITRESS CABIN CLASS FINAL REPORT CT, SOFT TISSUE NECK, CONTRAST [...] Report Verified Date/Time: 09/08/2018 09:42:06 Reading Location: [facility] C013V Neuro Reading Room Performing Organization Address City/State/Zipcode Phone Number GE RIS * POC-Creatinine (09/08/2018 9:00 AM WAITER/WAITRESS CABIN CLASS) POC-Creatinine 0.8Comment: TESTED AT [facility] 0.6 - 1.3 mg/dL [address] POC-EGFR 72 mL/min/1.73M2 [facility] Specimen Blood Performing Organization Address City/State/[place] [address] [facility] C[facility] after 03/14/2018 Insurance Payer Benefit Subscriber ID Type Phone Address Plan / Group [employer] xxxxxxxxxx Pland[employer]PLAC E EXCHANGE
--- NOTE | 2019-03-15 16:40 | NUR ---
MD ORDERED CT WITHOUT AND THEN CHANGED ORDER TO WITH, CHASSIS DRIVER NOTIFIED STAT. FIRST ORDER CANCELLED.
[2019-03-15] MEDS ORDERED: SODIUM CHLORIDE 0.9% 250ML 250 ML ONE (17:05)
[2019-03-15] MEDS ORDERED: CEFTRIAXONE SOD 1 GM VIAL ONE (17:05)
[2019-03-15] MEDS ORDERED: SODIUM CHLORIDE 0.9% 250ML 250 ML IV ONE (17:15)
[2019-03-15] MEDS ORDERED: CEFTRIAXONE SOD 1 GM VIAL IV ONE (17:15)
--- NOTE | 2019-03-15 18:37 | Diagnostic Imaging Report ---
CT SOFT TISSUE NECK WITH-HOPD HISTORY: Throat swelling, thyroid swelling; congenital thyroglossal duct cyst COMPARISON: None. TECHNIQUE: Axial CT images were obtained through the neck with intravenous, iodine based contrast. Coronal and sagittal reconstructions obtained from the axial data. One or more of the following dose reduction techniques were used: Automated exposure control, adjustment of the mA and/or kV according to patient size, and/or utilization of iterative reconstruction technique. DISCUSSION: An approximately 2.3 x 1.8 x 2.4 cm peripherally enhancing, hypodense cystic lesion along the anterior thyrohyoid membrane, slightly eccentric to the left, is associated with local surrounding fat stranding. There is mild diffuse mural thickening without suspicious nodularity. Small thyroid pyramidal lobe appears to course towards this cystic lesion. A 1.7 cm, mildly hypodense nodule is seen in the right thyroid lobe. Additional 1.3 cm hypodense nodule is seen in the right thyroid isthmus. Smaller, subcentimeter hypodense nodule is seen in the left thyroid lobe. The palatine tonsils are mildly prominent. Otherwise, the visualized upper aerodigestive tract is unremarkable. Mildly prominent bilateral upper jugular chain lymph nodes measure up to 1.8 cm on the right and 2.5 cm on the left. Multiple additional smaller bilateral upper and lower jugular chain lymph nodes are present, left greater than right. For example, there is a 1.2 cm left infrahyoid jugular chain lymph node, lateral to the left carotid space at the level of the thyroid gland. The submandibular and parotid glands are unremarkable. Mild bilateral carotid bulb calcified plaque is present. The medical records library professor, parapharyngeal, posterior cervical, and perivertebral spaces are unremarkable. Mild carotid siphon calcifications are present. Otherwise, the visualized intracranial compartment and orbits are grossly unremarkable. Mild to moderate scattered bilateral paranasal sinus mucosal thickening is present. There is a polyp or retention cyst in the right maxillary sinus. There are mild degenerative changes throughout the spine. The upper lungs are unremarkable. IMPRESSION: 1. Approximately 2.4 cm cystic lesion along the anterior thyrohyoid membrane, eccentric to the left, is compatible with a thyroglossal duct cyst. Surrounding fat stranding suggests superimposed infection/inflammation. No suspicious mural nodularity. Tissue diagnosis should be considered given the patient's age. 2. Bilateral hypodense thyroid nodules, measuring up to 1.7 cm in the right thyroid lobe, can be correlated with thyroid ultrasound. 3. Mildly prominent bilateral upper (left greater than right) and left lower jugular chain lymph nodes may be reactive. Signed by: Dr. Bert Pitts M.D. on 03/15/2019 6:33 PM
[2019-03-15] MEDS ORDERED: ACETAMINOPHEN 325 MG TAB ONE (19:38)
== END 2019-03-15 19:42 | disposition home or self-care (01) ==
LOC: FSED 16:04
DX: H92.02 Otalgia, left ear (principal); J03.00 Acute streptococcal tonsillitis, unspecified; E11.9 Type 2 diabetes mellitus without complications; E03.9 Hypothyroidism, unspecified
CPT/HCPCS: 70491; 80048; 85025; 99284; J0696; J7050

== ENCOUNTER 2019-03-26 10:54 | Outpatient (RCR) | payer OTHER | END 2019-03-27 | LOC: PT 10:54 | PROVIDERS: ATTEND Specialist | DX: S82.142A Displaced bicondylar fracture of left tibia, initial encounter for closed fracture (principal); M62.81 Muscle weakness (generalized); R26.2 Difficulty in walking, not elsewhere classified; M25.562 Pain in left knee; M25.662 Stiffness of left knee, not elsewhere classified ==

== ENCOUNTER 2019-04-24 10:57 | Outpatient (RCR) | payer OTHER ==
[~2019-04-24 10:57] MED LIST changes: -MAGNESIUM500 MG PEG; +MAGNESIUM500 MG PO
[2019-06-19] MEDS ORDERED: CALCIUM WITH M1 EAC1 PO (13:32)
[2019-06-19] MEDS ORDERED: ginkgo biloba (13:32)
[2019-06-19] MEDS ORDERED: PROBIOTIC PO (13:32)
[2019-06-19] MEDS ORDERED: VITAMIN C (13:32)
[2019-06-19] MEDS ORDERED: CHROMIUM PICOLINATE PO (13:32)
[2019-06-19] MEDS ORDERED: VITAMIN D3 PO (13:32)
[2019-06-19] MEDS ORDERED: CQ10 PO (13:32)
[2019-06-19] MEDS ORDERED: alpha lipoic acid PO (13:32)
[2019-06-19] MEDS ORDERED: VITAMIN E PO (13:32)
== END 2019-04-26 ==
LOC: PT 10:57
PROVIDERS: ATTEND Specialist
DX: S82.142A Displaced bicondylar fracture of left tibia, initial encounter for closed fracture (principal); M25.562 Pain in left knee; M25.662 Stiffness of left knee, not elsewhere classified; M62.81 Muscle weakness (generalized); R26.2 Difficulty in walking, not elsewhere classified
CPT/HCPCS: 97139

== ENCOUNTER 2019-05-15 13:00 | Outpatient (RCR) | payer OTHER ==
[2019-06-19] MEDS ORDERED: PROBIOTIC PO (13:32)
[2019-06-19] MEDS ORDERED: VITAMIN E PO (13:32)
[2019-06-19] MEDS ORDERED: CALCIUM WITH M1 EAC1 PO (13:32)
[2019-06-19] MEDS ORDERED: CQ10 PO (13:32)
[2019-06-19] MEDS ORDERED: CHROMIUM PICOLINATE PO (13:32)
[2019-06-19] MEDS ORDERED: ginkgo biloba (13:32)
[2019-06-19] MEDS ORDERED: VITAMIN C (13:32)
[2019-06-19] MEDS ORDERED: alpha lipoic acid PO (13:32)
[2019-06-19] MEDS ORDERED: VITAMIN D3 PO (13:32)
== END 2019-05-27 ==
LOC: PT 13:00
PROVIDERS: ATTEND Specialist
DX: S82.142A Displaced bicondylar fracture of left tibia, initial encounter for closed fracture (principal); M25.562 Pain in left knee; M25.662 Stiffness of left knee, not elsewhere classified; M62.81 Muscle weakness (generalized); R26.2 Difficulty in walking, not elsewhere classified
CPT/HCPCS: 97139

== ENCOUNTER → 2019-06-22 | Day surgery (SDC) | payer OTHER ==
[~2019-06-22] MED LIST changes: +CALCIUM WITH M1 EAC1 PO; +CEFAZOLIN SOD 1 GM/NS 50ML 100 ML IV ONE; +CHROMIUM PICOLINATE PO; +CQ10 PO; +FENTANYL CITRATE/PF 100MCG/2 ML INJ ONE; +LIDOCAINE HCL 2% LOCAL INJ 5 ML SDV VIAL INJ ONE; +MIDAZOLAM HCL 2 MG/2 ML VIAL ONE; +PROBIOTIC PO; +PROPOFOL IV EMULSION 10 MG/ML 20 ML VIAL ONE; +VITAMIN C; +VITAMIN D3 PO; +VITAMIN E PO; +alpha lipoic acid PO; +ginkgo biloba
--- OUTSIDE RECORDS SUMMARY | 2019-06-22 11:04 | XMS REPORT | Clinical Summary ---
Author Author DIANE [facility] HospitalLetGiveMcGe[facility] HospitalAlgebraix DataDay[facility] Address Unknown Phone Unavailable Care Team Providers Care Assistant Cook Name Role Phone David Tamez MD PCP Unavailable Allergies No Known Allergies Medications End Date Status Medication Sig Dispensed Refills Start Date Active Missing or Non-Formulary . 0 MedicationIndications: multiple supplements Active acetaminophen-codeine Take 1 tablet 30 tablet 0 (TYLENOL-CODEINE #3) by mouth 9 300-30 mg per tablet every 4 (four) hours as needed for Pain. Max Daily Amount: 6 tablets 10/15/2018 Discontinued omega 4-duw-svv-fish oil Take 1,000 mg 0 1,200 (144-216) [...] 200 mg Take by 0 Cap mouth. 05/18/2019 Discontinued acetaminophen-codeine Take 1 tablet 30 tablet 0 (TYLENOL-CODEINE #3) by mouth 9 300-30 mg per tablet every 4 (four) hours as needed for Pain. 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 Encounters Care Team Description Date Type Specialty Kierra Foley CRNA 05/18/2019 Anesthesia Event Nickolas Tom MD EXCISION,THYROGLOSSAL DUCT CYST 05/18/2019 Surgery Nickolas Tom MD 05/18/2019 [facility] General Internal Medicine - Encounter 05/19/2019 05/18/2019 Travel Nickolas Tom MD 05/12/2019 Hospital Pre-Admission Testing Encounter Nickolas Tom MD 05/12/2019 Outside Orders Nickolas Tom MD 10/10/2018 Hospital Pre-Admission Testing Encounter Nickolas Tom MD Thyroid nodule 09/08/2018 Hospital Radiology Encounter Nickolas Tom MD Neck mass 09/08/2018 Hospital Radiology Encounter Nickolas Tom MD Neck mass (Primary Dx); Thyroid nodule 09/04/2018 Outside Orders Central Scheduling after 06/21/2018 Social History Date Tobacco Use Types Packs/Day [...] Vital Signs Time Taken Vital Sign Reading 05/19/2019 12:21 PM CDT Blood Pressure 153/76 05/19/2019 12:21 PM CDT Pulse 57 05/19/2019 12:21 PM CDT Temperature 36.3 C (97.4 F) 05/19/2019 12:21 PM CDT Respiratory Rate 18 05/19/2019 12:21 PM CDT Oxygen Saturation 95% - Inhaled Oxygen - Concentration 05/18/2019 7:36 AM CDT Weight 73.8 kg (162 lb 11.2 oz) 05/18/2019 7:36 AM CDT Height 165.1 cm (5' 5") 05/18/2019 7:36 AM CDT Body Mass Index 27.07 Plan of Treatment Not on file Procedures Comments Procedure Name Priority Date/Time Associated Diagnosis TISSUE EXAM AP Routine 05/18/2019 1:34 PM CDT EXCISION,THYROGLOSSAL 05/18/2019 Thyroglossal duct cyst DUCT CYST 11:57 AM CDT Case Notes 2.5 HRS CBC W/PLT COUNT & AUTO Routine 05/12/2019 DIFFERENTIAL 4:26 PM CDT PT/APTT Routine 05/12/2019 4:26 PM CDT TSH/FREE T4 IF INDICATED Routine 05/12/2019 4:26 PM CDT CBC W/PLT COUNT & AUTO Routine 05/12/2019 DIFFERENTIAL 4:26 PM CDT BASIC METABOLIC PANEL (7) Routine 05/12/2019 4:26 PM CDT CYTOLOGY AP Routine 09/08/2018 4:00 PM HOSPICE ART THERAPIST US FINE NEEDLE ASPIRATION Routine 09/08/2018 Thyroid nodule THYROID 1:15 PM [address] ART [address]ERAPIST CT SOFT TISSUE NECK WITH Routine 09/08/2018 Neck mass IV CONTRAST 9:04 AM HOSPICE ART THERAPIST POCT-CREATININE Routine 09/08/2018 9:00 AM HOSPICE ART THERAPIST after 06/21/2018 Results * Tissue Exam (05/18/2019 1:34 PM CDT) Case Report Surgical Pathology [facility] Case: [id number] Authorizing Provider:Nickolas Tom MD Collected: 05/18/2019 1334 Ordering Location: [facility] PERIOPERATIVE Received: 05/18/2019 1433 SERVICES Pathologist: Josephine Kilgore MD Specimen:Thyroid, thyroid glossal cyst DIAGNOSIS SOFT TISSUE, "THYROGLOSSAL [facility] DUCT CYST", EXCISION: [facility] - PREDOMINANTLY DENUDED CYST WITH FOCAL EPITHELIAL LINING AND ACUTE INFLAMMATION, COMPATIBLE WITH THYROGLOSSAL DUCT CYST (SEE COMMENT) - BACKGROUND FIBROSIS, CHRONIC INFLAMMATION, AND MARKED HISTIOCYTIC INFILTRATES, COMPATIBLE WITH PRIOR RUPTURE/INFECTION (SEE COMMENT) Signing Pathologist Direct Phone Line: [phone] COMMENT Section show cystic structure [facility] with predominantly denuded [facility] epithelial lining. Only very foal epithelial lining cells with columnar features, reactive changes and scattered intraepithelial neutrophils are seen. Marked foamy histiocytic accumulation, chronic inflammation and fibrosis are seen in the background, suggestive of xanthogranulomatous inflammation, compatible with prior rupture or infection. By immunohistochemistry, the histiocytes are positive for CD68, while negative for S100 and AE1/AE3. Fragments of bone with trilineage hematopoiesis are seen. Taken together, the findings could be compatible with a diagnosis of thyroglossal duct cyst with superimposed rupture/infection. Clinical correlation is recommended. CPT Code(s) 24509, 35061, 70529, 91834 x 2 [facility] CLINICAL HISTORY Pre and postop diagnosis: [facility] thyroglossal duct cyst [facility] SPECIMEN SOURCE Thyroglossal cyst [facility] GROSS DESCRIPTION Received in formalin labeled [facility] with the patient's name, [facility] accession number and "thyroid glossal cyst" is a 2.8 x 2.1 x 1.5 cm irregular portion of brown cauterized soft tissue. The outer surface is inked blue. The specimen is is sectioned to reveal a 1.2 x 1 x 1 cm unilocular cyst filled with clear mucinous fluid. The cyst is surrounded by garibay yellow to yates-soft tissue and hemorrhagic trabecular bone. The specimen is entirely submitted. Section code: A1-A3, cyst with soft tissue in its entirety A4-A5, bone, following decalcification. CG/pl SPECIAL STUDIES The interpretation of this [facility] case included the use of [facility] immunohistochemistry or special stains. Control Slides Examined: In-house known positive controls were evaluated along with the test tissue. These control slides run alongside of the patients sample show appropriate staining. Internal positive and negative controls when available are evaluated Immunohistochemistry technical testing was performed at [facility] Pathology Laboratory where it was developed and its performance characteristics were determined. It has not been cleared or approved by the U.S. Food and Drug Administration. The FDA has determined that such clearance or approval is not necessary. The test is used for clinical purposes. It should not be regarded as investigational or for research. This laboratory is certified under the Clinical Laboratory Improvement Amendments of 1988 (CLIA-88) as qualified to perform high complexity clinical laboratory testing. Specimen Tissue Performing Organization Address City/[facility] Phone Number [address] [address] [facility] * TSH/Free T4 If Indicated (05/12/2019 4:26 PM CDT) TSH 1.93 0.35 - 4.94 uIU/mL [facility] Specimen Blood Performing Organization Address [facility] Phone Number [address] [address] [facility] * PT/aPTT (05/12/2019 4:26 PM CDT) Protime 13.7 11.9 - 14.2 seconds [facility] INR 1.1 <=5.9 [facility] PTT 26.7 22.5 - 36.0 seconds [facility] Specimen Blood Narrative Performed At Effective 03/25/2019: PT Reference Range Change [facility] New: 11.9-14.2Previous: 11.7-14.7 [facility] RECOMMENDED COUMADIN/WARFARIN INR THERAPY RANGES STANDARD DOSE: 2.0-3.0Includes: PROPHYLAXIS for venous thrombosis, systemic embolization; TREATMENT for venous thrombosis and/or pulmonary embolus. HIGH RISK: Target INR is 2.5-3.5 for patients wiht mechanical heart valves. Performing Organization Address City/[facility] Phone Number [facility] [address] [place] [address] MEDICAL CENTER * CBC with platelet count + automated diff (05/12/2019 4:26 PM CDT) WBC 5.9 3.5 - 10.5 K/L [facility] RBC 4.41 3.93 - 5.22 M/L [facility] Hemoglobin 13.2 11.2 - 15.7 GM/DL [facility] Hematocrit 40.9 34.1 - 44.9 % [facility] MCV 92.7 79.4 - 94.8 fL [facility] MCH 29.9 25.6 - 32.2 pg [facility] MCHC 32.3 32.2 - 35.5 GM/DL [facility] RDW 13.3 11.7 - 14.4 % [facility] Platelets 204 150 - 450 K/CU MM [facility] MPV 9.5 9.4 - 12.3 fL [facility] nRBC 0 0 - 0 /100 WBC [facility] % Neutros 55 % [facility] % Lymphs 36 % [facility] % Monos 6 % [facility] % Eos 1 % [facility] % Baso 1 % [facility] # Neutros 3.23 1.56 - 6.13 K/L [facility] # Lymphs 2.13 1.18 - 3.74 K/L [facility] # Monos 0.34 0.24 - 0.36 K/L [facility] # Eos 0.07 0.04 - 0.36 K/L [facility] # Baso 0.06 0.01 - 0.08 K/L [facility] Immature 0 0 - 1 % [facility] Granulocytes-Relative [facility] Specimen Blood Performing Organization Address City/State/Zipcode Phone Number [facility] [address] [place], [place] [phone] [facility] * Basic Metabolic Panel (05/12/2019 4:26 PM CDT) Sodium 141 136 - 145 meq/L [facility] Potassium 3.5 3.5 - 5.1 meq/L [facility] Chloride 107 98 - 107 meq/L [facility] CO2 25 22 - 29 meq/L [facility] BUN 17 7 - 21 mg/dL [facility] Creatinine 0.68 0.57 - 1.25 mg/dL [facility] Glucose 82 70 - 105 mg/dL [facility] Calcium 9.4 8.4 - 10.2 mg/dL [facility] EGFR 87Comment: ESTIMATED GFR IS mL/min/1.[address] [facility] NOT ACCURATE CREATININE [facility] CLEARANCE IN PREDICTING GLOMERULAR FILTRATION RATE. ESTIMATED GFR IS NOT APPLICABLE FOR DIALYSIS PATIENTS. Specimen Blood Performing Organization Address City/State/Zipcode Phone Number [place] [phone] [place], [place] [phone] [facility] * Cytology (09/08/2018 4:00 PM HOSPICE ART THERAPIST) Case Report Medical Cytology [facility] Report [facility] Case: [id number] Authorizing Provider:Nickolas Tom MD Collected: 09/08/2018 1600 Ordering Location: [facility] Radiology Main Received: 09/09/2018 1135 Pathologist: Lois Casper MD Specimen:Thyroid, Right DIAGNOSIS LEFT LOBE THYROID GLAND NODULE [facility] FNA BY CLINICIAN (CYTOSPINS): [facility] - DIAGNOSTIC CATEGORY: BENIGN - HYPERPLASTIC NODULE Signing Pathologist Direct Phone Line: [phone] CPT Code(s) 83188 [facility] CLINICAL DATA (2.2 X 1.1 X 1.6 cm) Left [facility] thyroid gland nodule [facility] SPECIMEN SOURCE LEFT LOBE THYROID GLAND NODULE [facility] FNA [facility] GROSS DESCRIPTION 30 mls in cytorich red; [address] [facility] cytospins [facility] Collected: [id number] Received: [id number] Gross assessment was [facility] performed at [place], Department of [facility] Pathology, [address] [place] [id number], Technical component was [facility] performed at [place], Department of [facility] Pathology, [address] [place] [address], Professional component [facility] was performed at [place], Department of [facility] Pathology, [address] [place] [address], Specimen Fine Needle Aspirate - Thyroid, Right Narrative Performed At Performing Organization Address City/State/Zipcode Phone Number [address] [address] [facility] * US Fine Needle Aspiration Thyroid (09/08/2018 1:15 PM HOSPICE ART THERAPIST) Specimen Narrative Performed At FINAL REPORT [facility] Ultrasound-guided fine needle aspiration of the thyroid. [...] The sample was sent to cytology in [facility]. Patient disposition: The patient was [...] MD Report Verified Date/Time:09/08/2018 14:54:06 Reading Location: [address] Ultrasound Reading Room Procedure Note Interface, External Ris In - 09/08/2018 2:56 PM HOSPICE ART THERAPIST FINAL REPORT Ultrasound-guided fine needle aspiration of [...] The sample was sent to cytology in [facility]. Patient disposition: The patient was [...] Report Verified Date/Time: 09/08/2018 14:54:06 Reading Location: [address] Ultrasound Reading Room Performing Organization Address City/State/Zipcode Phone Number [facility] * CT neck soft tissue with IV contrast (09/08/2018 9:04 AM HOSPICE ART THERAPIST) Specimen Narrative Performed At FINAL REPORT [employer] SHAN[address] CT, SOFT TISSUE NECK, CONTRAST INDICATION:R22.1 TECHNIQUE: [...] MD Report Verified Date/Time:09/08/2018 09:42:06 Reading Location: [address] Neuro Reading Room Procedure Note Interface, External Ris In - 09/08/2018 9:44 AM HOSPICE ART THERAPIST FINAL REPORT CT, SOFT TISSUE NECK, CONTRAST [...] Report Verified Date/Time: 09/08/2018 09:42:06 Reading Location: [facility] C013V Neuro Reading Room Performing Organization Address City/State/Zipcode Phone Number [facility] * POC-Creatinine (09/08/2018 9:00 AM HOSPICE ART THERAPIST) POC-Creatinine 0.8Comment: TESTED AT [facility] 0.6 - 1.3 mg/dL [facility] [address] POC-EGFR 72 mL/min/1.73M2 [facility] Specimen Blood Performing Organization Address City/State/Zipcode Phone Number [facility] [address] [place], [place] [phone] [facility] after 06/21/2018 Insurance Payer Benefit Subscriber ID Type Phone Address Plan / Group ARABELLA BELL xxxxxxxxxxx SUPERIOR
[2019-06-22 13:40] VITALS: BP 140/80
--- NOTE | 2019-06-26 16:18 | Operative Report ---
DATE OF PROCEDURE: 06/22/2019 SURGEON: Lemuel Lorenzo MD PREOPERATIVE DIAGNOSIS: Arthrofibrosis, left knee. POSTOPERATIVE DIAGNOSIS: Arthrofibrosis, left knee. OPERATION/PROCEDURE PERFORMED: The patient underwent close manipulation of the right knee under anesthesia. NUTRITIONAL HEALTH COACH: There was no records assistant. ANESTHESIA: Monitored anesthesia care with IV sedation. IV FLUIDS: Per the anesthesia record. BRIEF DESCRIPTION OF THE PATIENT'S OPERATIVE PROCEDURE: Ms. Hart was taken to the operating room and placed in the supine position on the operating table. Following the administration of IV sedation, the patient's left lower extremity was examined under anesthesia. She was found to have a well-healed incision overlying the knee joint. Gentle passive motion of the knee joint demonstrated motion from 10 degrees to 90 degrees of flexion. There were no mechanical blocks to motion of the knee joint. The patient has significant arthrofibrosis of the knee. The knee was gently manipulated under anesthesia. Fibrous bands were felt to give way during the manipulation. This resulted in marked improvement in the motion of the patient's knee joint. The patient had from 0-135 degrees of flexion as measured using a goniometer at the time of the procedure. Marked improvement in the motion of the patient's knee joint. Measurements were taken using a goniometer at this time on the case and the patient was found to have from 0-130 degrees of flexion of the knee joint. There were no mechanical blocks to motion of the knee joint. There was mild patellofemoral crepitus. The patient is IV sedation was reversed and she was awakened, and taken to the postanesthesia care unit in a stable condition. MD PRICILLA Alford/OMID /[id number]
== END | disposition home or self-care (01) ==
LOC: OR 10:56
PROVIDERS: ATTEND Specialist
DX: M24.662 Ankylosis, left knee (principal); Z01.810 Encounter for preprocedural cardiovascular examination; Z79.02 Long term (current) use of antithrombotics/antiplatelets; Z87.81 Personal history of (healed) traumatic fracture
CPT/HCPCS: 93005; J0690; J2001; J2250; J3010

== ENCOUNTER 2019-06-25 11:00 | Outpatient (RCR) | payer OTHER ==
[~2019-06-25 11:00] MED LIST changes: -CEFAZOLIN SOD 1 GM/NS 50ML 100 ML IV ONE; -FENTANYL CITRATE/PF 100MCG/2 ML INJ ONE; -LIDOCAINE HCL 2% LOCAL INJ 5 ML SDV VIAL INJ ONE; -MIDAZOLAM HCL 2 MG/2 ML VIAL ONE; -PROPOFOL IV EMULSION 10 MG/ML 20 ML VIAL ONE
== END 2019-06-27 ==
LOC: PT 11:00
PROVIDERS: ATTEND Specialist
DX: M24.662 Ankylosis, left knee (principal); M62.81 Muscle weakness (generalized); R26.2 Difficulty in walking, not elsewhere classified; M25.562 Pain in left knee; M25.662 Stiffness of left knee, not elsewhere classified

== ENCOUNTER 2019-07-14 09:00 | Outpatient (RCR) | payer OTHER | END 2019-07-27 | LOC: PT 09:00 | PROVIDERS: ATTEND Specialist | DX: M24.662 Ankylosis, left knee (principal) ==